=== PATIENT | female | born 1980 | race African-American/Black ===

== ENCOUNTER → 2016-10-06 | Outpatient (CLI) | payer BC ==
--- NOTE | ~2016-10-06 | US80 ---
[facility] A Service [facility] RADIOLOGY TEXT RESULTS PATIENT: YONI ALMODOVAR LOCATION: [facility]US : 79 UNIT #: [id number] AGE: [address]: Olayinka Silver MD SEX: F ORDER DR: [id number] [address] [address] [id number] O MR#: [id number] Acc #: [id number] NAME: YONI ALMODOVAR : 1980 SEX: F STUDY DATE/TIME: 10/06/2016 11:07 UNIT: SGUS ROOM: STUDY DESCRIPTION: US Kidney Unilateral Complete Attending Physician: Olayinka Silver M.D. Referring Physician: Olayinka Silver M.D. Ordering Physician: Olayinka Silver M.D. Primary Care Physician: Olayinka Silver M.D. MEDICAL IMAGING REPORT This report is preliminary unless electronic signature is present. EXAM Renal ultrasound on the left, 10/06/2016. INDICATION History of left renal cyst on CT performed at [facility]. Follow up. TECHNIQUE Sonographic imaging of the left kidney was performed. COMPARISON STUDIES We have no comparison studies or reports. FINDINGS Imaging of the left kidney only was requested and performed. The left kidney measures 9.9 x 5.1 x 6.5 cm. There is no hydronephrosis or shadowing stone. Left kidney is otherwise unremarkable. No cystic or solid lesion identified. Imaging of the bladder is unremarkable. IMPRESSION 1. The left kidney appears unremarkable. No cyst or solid lesion identified. Correlation with the recent outside CT scan is recommended in this regard. 2. The bladder is unremarkable. Dictated by... Alfonso Ortiz M.D. [facility] A Service [facility] RADIOLOGY TEXT RESULTS PATIENT: YONI ALMODOVAR LOCATION: SGUS : 79 UNIT #: [id number] AGE: [address]: Olayinka Silver MD SEX: F ORDER DR: THIS IS AN ELECTRONICALLY VERIFIED REPORT Alfonso Ortiz M.D. at 10/06/2016 5:24 PM AALINA/raina TD: 10/06/2016 15:22 JOB #: [id number] MEDICAL IMAGING REPORT Page 1 of 1
== END | disposition home or self-care (01) ==
LOC: SGUS 10:23
DX: N28.1 Cyst of kidney, acquired (principal)
CPT/HCPCS: 76770